=== PATIENT | female | born 1970 | race Caucasian/White ===

== ENCOUNTER → 2017-01-10 | Outpatient (CLI) | payer OTHER | LOC: FIMAGING 14:30 | PROVIDERS: ATTEND Obstetrics & Gynecology | DX: Z12.31 Encounter for screening mammogram for malignant neoplasm of breast (principal); Z80.3 Family history of malignant neoplasm of breast | CPT/HCPCS: G0202 ==

== ENCOUNTER 2018-02-13 17:33 | Observation (INO) | payer OTHER ==
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
[2018-02-13 18:29] VITALS: BP 103/71
[2018-02-13] MEDS ORDERED: LR 1,000 ML IV SCH (19:00)
[2018-02-13 19:26] LABS: PLATELET COUNT 176 10^3/uL (150-400)
== END 2018-02-13 22:15 | disposition home or self-care (01) ==
LOC: FLD 18:36
PROVIDERS: ADMIT Obstetrics & Gynecology; ATTEND Obstetrics & Gynecology
DX: R10.30 Lower abdominal pain, unspecified (principal); O09.523 Supervision of elderly multigravida, third trimester; D68.51 Activated protein C resistance; Z79.01 Long term (current) use of anticoagulants; Z3A.37 37 weeks gestation of pregnancy; V89.2XXA Person injured in unspecified motor-vehicle accident, traffic, initial encounter
CPT/HCPCS: 59025; G0378

== ENCOUNTER 2018-02-16 11:55 | Observation (INO) | payer OTHER ==
[2018-02-16] MEDS ORDERED: TERBUTALINE SULFATE 1 MG/ML VIAL SC PRN (12:39)
== END 2018-02-16 12:35 | disposition home or self-care (01) ==
LOC: FLD 11:55
PROVIDERS: ADMIT Obstetrics & Gynecology; ATTEND Obstetrics & Gynecology
DX: O47.1 False labor at or after 37 completed weeks of gestation (principal); Z3A.37 37 weeks gestation of pregnancy

== ENCOUNTER 2018-02-28 22:13 | Observation (INO) | payer OTHER | END 2018-02-28 22:55 | disposition home or self-care (01) | LOC: FLD 22:13 | PROVIDERS: ADMIT Obstetrics & Gynecology; ATTEND Obstetrics & Gynecology | DX: O09.523 Supervision of elderly multigravida, third trimester (principal); Z3A.39 39 weeks gestation of pregnancy ==

== ENCOUNTER 2018-03-03 06:00 | Inpatient (IN) | payer OTHER ==
[2018-03-03] MEDS ORDERED: fentaNYL 200 MCG, BUPIVACAINE 0.5% 20 ML in NS 100 ML EP SCH (11:30)
[2018-03-03] MEDS ORDERED: ONDANSETRON 4 MG/2 ML VIAL ONE (14:46)
[2018-03-03] MEDS ORDERED: CALCIUM CARBONATE 500 MG CHEWABLE TAB PO ONE (17:50)
[2018-03-03] MEDS ORDERED: METHYLERGONOVINE MAL 0.2 MG/ML INJ ONE (18:46)
[2018-03-03] MEDS ORDERED: IBUPROFEN 600 MG TAB PO ONE (19:05)
[2018-03-03] MEDS ORDERED: OXYTOCIN 10 UNIT/ML VIAL ONE (19:11)
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
[2018-03-04] MEDS ORDERED: ACETAMINOPHEN 325 MG TAB PO PRN (00:18)
[2018-03-04] MEDS ORDERED: HYDROCORTISONE 0.5% CREAM TP PRN (00:19)
[2018-03-04] MEDS ORDERED: OXYTOCIN/RINGERS LACTATE 1,000 ML IV SCH (00:30)
[2018-03-04] MEDS: IBUPROFEN 600 MG TAB PO PRN ×3 (06:10→22:05)
[2018-03-04] MEDS ORDERED: OXYTOCIN/RINGERS LACTATE 1,000 ML IV PRN (07:30)
[2018-03-04] MEDS ORDERED: LR 500 ML IV PRN (07:30)
[2018-03-04] MEDS ORDERED: LR 1,000 ML IV PRN (07:30)
[2018-03-04] MEDS ORDERED: IBUPROFEN 600 MG TAB PO PRN (07:30)
[2018-03-04] MEDS ORDERED: EPSOM SALT 454 GM TP PRN (07:30)
[2018-03-04] MEDS ORDERED: LIDOCAINE 1% 300 MG/30 ML SDV SC PRN (07:30)
[2018-03-04] MEDS ORDERED: OLIVE OIL 118 ML BTL MISC PRN (07:30)
[2018-03-04] MEDS ORDERED: MISOPROSTOL 200 MCG TAB PR PRN (07:30)
[2018-03-04] MEDS ORDERED: TERBUTALINE SULFATE 1 MG/ML VIAL IV PRN (07:30)
[2018-03-04] MEDS ORDERED: OXYTOCIN/RINGERS LACTATE 500 ML IV SCH (07:30)
[2018-03-04] MEDS: DOCUSATE SODIUM 100 MG CAP PO PRN ×2 (08:27→22:05)
[2018-03-04] MEDS: ENOXAPARIN 40 MG/0.4 ML SYR SC SCH (08:43)
[2018-03-04 08:47] LABS: PLATELET COUNT 208 10^3/uL (150-400)
[2018-03-04] MEDS ORDERED: ENOXAPARIN 40 MG/0.4 ML SYR SC SCH (09:00)
--- NOTE | 2018-03-04 15:55 | OBPP ---
Progress Note Assessment/Plan: Assessment: POD# 0 S/P pltcs non reassuring status remote from delivery breast feeding uncomplicated post course Plan: routine post operative and post care 03/04/18 15:53 Subjective/ Course: 03/04/18 15:54 patient is doing well. pain is well controlled. normal lochia. denies headache and changes in vision. breast feeding is going well. no issues. Objective: 03/04/18 08:35 Patient ABO/Rh A POSITIVE 03/04/18 08:35 Temp Pulse Resp BP Pulse Ox 36.9 C 67 16 104/67 03/04/18 08:23 03/04/18 08:23 03/04/18 08:23 03/04/18 08:23 Physical Exam - Physical Exam Neck: non-tender, full range of motion, supple Respiratory: chest non-tender, lungs clear, normal breath sounds Cardiac/Chest: normal peripheral pulses, regular rate, rhythm Abdomen: normal bowel sounds, non-tender, other (fundus firm and non tender) Extremities: normal range of motion, non-tender, normal inspection, normal capillary refill Skin: normal color, warm/dry, other (incision covered) Neuro/Psych: no motor/sensory deficits, alert, normal mood/affect, oriented x 3
--- NOTE | 2018-03-04 15:59 | OBPP ---
Progress Note Assessment/Plan: Assessment: PPD# 1 S/P breast feeding uncomplicated post course factor v leiden - on lovenox A+ Plan: routine post care lovenox restarted 03/04/18 15:57 Subjective/ Course: 03/04/18 15:54 patient is doing well. pain is well controlled. normal lochia. denies headache and changes in vision. breast feeding is going well. no issues. will go home. restarted lovenox. requests rx be called in to [facility]. 03/04/18 15:58 Objective: 03/04/18 08:35 Patient ABO/Rh A POSITIVE 03/04/18 08:35 Temp Pulse Resp BP Pulse Ox 36.9 C 67 16 104/67 03/04/18 08:23 03/04/18 08:23 03/04/18 08:23 03/04/18 08:23 Physical Exam - Physical Exam EENT: PERRL/EOMI Neck: non-tender, full range of motion, supple Respiratory: chest non-tender, lungs clear, normal breath sounds Cardiac/Chest: normal peripheral pulses, regular rate, rhythm Abdomen: normal bowel sounds, non-tender, other (fundus firm and non tender) Extremities: normal range of motion, non-tender, normal inspection, normal capillary refill Skin: normal color, warm/dry Neuro/Psych: no motor/sensory deficits, alert, normal mood/affect, oriented x 3
[2018-03-05] MEDS: IBUPROFEN 600 MG TAB PO PRN ×2 (06:52→14:33)
[2018-03-05] MEDS: ENOXAPARIN 40 MG/0.4 ML SYR SC SCH (09:15)
[2018-03-05] MEDS: DOCUSATE SODIUM 100 MG CAP PO PRN (09:16)
[2018-03-05 10:50] VITALS: BP 101/66
--- NOTE | 2018-03-05 12:49 | OBGCSDC ---
General Delivery Information - General Info : 8 Para: 2 Abortions: 5 L&D Analgesia/Anesthesia Type: Epidural Admission Date: 03/03/18 Labs: Patient ABO/Rh A POSITIVE 03/04/18 08:35 Hct 32.0 % (38.0-47.0) L 03/04/18 08:35 - Hospital Course : 03/04/18 15:54 patient is doing well. pain is well controlled. normal lochia. denies headache and changes in vision. breast feeding is going well. no issues. will go home. restarted lovenox. requests rx be called in to [facility]. 03/04/18 15:58 S) Pt doing well, reports min pain and bleeding. she is ambulating and voiding without difficulty. She is . She desires discharge home today. O) VSS, afebrile constitutional: WNWF, A&Ox3 HEENT: normocephalic, atraumatic, supple Heart: RRR, No murmur Chest: CTA-B Abdomen: Soft, nontender Uterus: Firm at U-2 Lochia: Minimal rubra Perineum: Intact, healing well Extremities: Trace edema, and negative Lev's sign Neuro: Grossly normal A) 47-year-old S/P PPD#2 P) Discharge home today Continue Pelvic rest x6wks Discussed danger signs (infection, preeclampsia, depression, heavy bleeding, etc ) RTO in 4/6 weeks [place] Data MARLEN: 03/05/18 Gestational Age: 40 week(s) and 0 day(s) [place] Delivery Date: 03/03/18 Delivery Time: 18:13 Sex of Infant: Male Weight (gm): 3604 g Score (1 Min): 5 Score (5 Min): 9 Discharge Information - Discharge Information Prescriptions: Ibuprofen [Motrin (*)] 600 mg PO Q6 PRN #30 tab PRN Reason: Pain, Mild Condition: Good Instruction/Follow Up: See Instruction Sheet, Four Weeks, Six Weeks
== END 2018-03-05 16:20 | disposition home or self-care (01) | DRG 775 ==
LOC: FOB 06:05
PROVIDERS: ADMIT Obstetrics & Gynecology; ATTEND Obstetrics & Gynecology
PROC: 10E0XZZ Delivery of Products of Conception, External Approach (ICD-10-PCS; principal; 2018-03-03)
PROC: 10907ZC Drainage of Amniotic Fluid, Therapeutic from Products of Conception, Via Natural or Artificial Opening (ICD-10-PCS; principal; 2018-03-03)
PROC: 3E033VJ Introduction of Other Hormone into Peripheral Vein, Percutaneous Approach (ICD-10-PCS; principal; 2018-03-03)
DX: O99.12 Other diseases of the blood and blood-forming organs and certain disorders involving the immune mechanism complicating childbirth (principal); D68.51 Activated protein C resistance; O99.284 Endocrine, nutritional and metabolic diseases complicating childbirth; E72.12 Methylenetetrahydrofolate reductase deficiency; Z37.0 Single live birth; Z3A.39 39 weeks gestation of pregnancy; Z79.01 Long term (current) use of anticoagulants; O69.82X0 Labor and delivery complicated by other cord entanglement, without compression, not applicable or unspecified
CPT/HCPCS: J0690; J1650; J2210; J2405; J2590; J3010